=== PATIENT | female | born 1950 | race African-American/Black ===

== ENCOUNTER → 2016-11-19 | Outpatient (CLI) | payer BC ==
--- NOTE | 2016-11-19 12:57 | XR ---
EXAMINATION TYPE: XR chest 2V DATE OF EXAM: 11/19/2016 12:53 PM COMPARISON: NONE TECHNIQUE: PA and lateral views submitted. HISTORY: Influenza FINDINGS: The lungs are clear and there is no pneumothorax, pleural effusion, or focal pneumonia. Hypertrophi c and degenerative changes spine. Surgical clips in the upper abdomen. IMPRESSION: 1. No acute process.
== END ==
LOC: RADXRMAIN 12:34
PROVIDERS: ATTEND Internal Medicine
DX: J10.89 Influenza due to other identified influenza virus with other manifestations (principal)
CPT/HCPCS: 71020

== ENCOUNTER → 2017-04-21 | Outpatient (CLI) | payer BC ==
--- NOTE | 2017-04-22 09:33 | MM ---
Reason for exam: screening (asymptomatic). Last mammogram was performed 1 year and 7 months ago. History: Patient is postmenopausal. Physical Findings: A clinical breast exam by your physician is recommended on an annual basis and results should be correlated with mammographic findings. MG Screening Mammo w CAD Bilateral CC and MLO view(s) were taken. Prior study comparison: September 22, 2015, bilateral MG 3d diag mammo w/cad ANUJ. August 30, 2014, left breast MG work up mamm w CAD LT. The breast tissue is heterogeneously dense. This may lower the sensitivity of mammography. There is no discrete abnormality. No significant changes when compared with prior studies. ASSESSMENT: Negative, BI-RAD 1 RECOMMENDATION: Routine screening mammogram of both breasts in 1 year.
== END | disposition home or self-care (01) ==
LOC: RADMAMWWP 07:58
PROVIDERS: ATTEND Internal Medicine
DX: Z12.31 Encounter for screening mammogram for malignant neoplasm of breast (principal)

== ENCOUNTER 2017-09-13 22:37 | Emergency (ER) | payer BC, MEDICARE ==
[2017-09-13 22:43] VITALS: RESP 18
[2017-09-13] MEDS ORDERED: KETOROLAC 30 MG/ML 1 ML VIAL IVP STA (23:00)
--- NOTE | 2017-09-13 23:04 | ED ---
General Adult HPI - General Chief complaint: Chest Pain Stated complaint: Chest Pain Time Seen by Provider: 09/13/17 22:50 Source: patient, RN notes reviewed, old records reviewed Mode of arrival: wheelchair Limitations: no limitations - History of Present Illness Initial comments: 67-year-old female presents for evaluation of sternal chest pain. Patient's pain is been present for 3 days. She was urged by her friends and family to present for evaluation. Patient states she developed this pain after shoveling snow. Sharp in nature. She denies any cough. States she has shortness of breath only secondary to pain with deep inspiration. Pain is localized to the sternum. No radiating symptoms. No diaphoresis. Patient has past medical history diabetes, no history of coronary artery disease. No lower tremor swelling or calf tenderness. - Related Data Home Medications Medication Instructions Recorded Confirmed Clopidogrel Bisulfate [Clopidogrel] 75 mg PO DAILY 09/16/14 09/26/15 Aspirin [Adult Low Dose Aspirin EC] 81 mg PO DAILY 09/05/15 09/26/15 Cholecalciferol [Vitamin D3] 1,000 unit PO DAILY 09/05/15 09/26/15 Vitamin B Complex 1 each PO DAILY 09/05/15 09/26/15 Metoprolol Succinate [Toprol XL] 50 mg PO DAILY 09/26/15 09/26/15 metFORMIN HCL [Glucophage] 1 tab PO DAILY 09/26/15 09/26/15 Previous Rx's Medication Instructions Recorded Ibuprofen [Motrin] 400 mg PO Q6HR PRN #30 tab 09/14/17 Allergies Allergy/AdvReac Type Severity Reaction Status Date / Time nausea medication Allergy Dyspnea Uncoded 09/13/17 22:42 Review of Systems ROS Statement: Those systems with pertinent positive or pertinent negative responses have been documented in the HPI. ROS Other: All systems not noted in ROS Statement are negative. Past Medical History Additional Past Medical History / Comment(s): STATES HAD SYMPTOMS OF TIA, BUT WAS FOUND OUT TO BE A SIDE EFFECT FROM A MEDICATION. History of Any Multi-Drug Resistant Organisms: None Reported Past Surgical History: Cholecystectomy, Orthopedic Surgery, Tonsillectomy Past Psychological History: No Psychological Hx Reported Smoking Status: Never smoker Past Alcohol Use History: None Reported Past Drug Use History: None Reported General Exam Limitations: no limitations General appearance: alert, in no apparent distress Head exam: Present: atraumatic, normocephalic Eye exam: Present: normal appearance, PERRL, EOMI ENT exam: Present: normal exam Neck exam: Present: normal inspection. Absent: tenderness Respiratory exam: Present: normal lung sounds bilaterally, chest wall tenderness. Absent: respiratory distress, wheezes, rales Cardiovascular Exam: Present: regular rate, normal rhythm, normal heart sounds GI/Abdominal exam: Present: soft. Absent: distended, tenderness Extremities exam: Present: normal inspection, normal capillary refill. Absent: pedal edema Neurological exam: Present: alert, oriented X3, CN II-XII intact. Absent: motor sensory deficit Psychiatric exam: Present: normal affect, normal mood Skin exam: Present: warm, dry, intact. Absent: cyanosis, diaphoretic Course Vital Signs 09/13/17 09/13/17 09/14/17 22:40 23:01 00:18 Temperature 98.2 F Pulse Rate 78 55 L 50 L Respiratory 18 18 18 Rate Blood Pressure 134/72 135/82 117/79 O2 Sat by Pulse 98 99 100 Oximetry EKG Findings - EKG Comments: EKG Findings:: EKG shows sinus bradycardia, rate of 59, ND interval 148, QRS duration 80, QTC 421, no signs of ST segment elevation or depression Medical Decision Making - Medical Decision Making 67-year-old female presents with reproducible chest pain after shoveling snow. Pain is been present for 3 days. EKG is nonischemic. Psych CBC, CMP unremarkable. Troponin negative. With 3 days of symptoms, negative troponin, and reproducible chest pain I have no concern for cardiac chest pain. Chest x- ray shows no acute findings. Patient's pain is improved with Toradol. She will continue taking Motrin for pain at home. Diagnosis: Chest wall strain, costochondritis - Lab Data Result diagrams: 09/13/17 22:55 09/13/17 22:55 Lab Results 09/13/17 09/13/17 09/13/17 Range/Units 22:55 22:55 22:55 WBC 6.8 (3.8-10.6) k/uL RBC 4.41 (3.80-5.40) m/uL Hgb 13.5 (11.4-16.0) gm/dL Hct 42.2 (34.0-46.0) % MCV 95.7 (80.0-100.0) fL MCH 30.7 (25.0-35.0) pg MCHC 32.1 (31.0-37.0) g/dL RDW 12.5 (11.5-15.5) % Plt Count 275 (150-450) k/uL Neutrophils % 44 % Lymphocytes % 44 % Monocytes % 6 % Eosinophils % 2 % Basophils % 1 % Neutrophils # 3.0 (1.3-7.7) k/uL Lymphocytes # 2.9 (1.0-4.8) k/uL Monocytes # 0.4 (0-1.0) k/uL Eosinophils # 0.1 (0-0.7) k/uL Basophils # 0.1 (0-0.2) k/uL PT (9.0-12.0) sec INR (<1.2) APTT (22.0-30.0) sec Sodium 143 (137-145) mmol/L Potassium 4.7 (3.5-5.1) mmol/L Chloride 106 (98-107) mmol/L Carbon Dioxide 28 (22-30) mmol/L Anion Gap 9 mmol/L BUN 17 (7-17) mg/dL Creatinine 0.70 (0.52-1.04) mg/dL Est GFR (MDRD) Af Amer >60 (>60 ml/min/1.73 sqM) Est GFR (MDRD) Non-Af >60 (>60 ml/min/1.73 sqM) Glucose 127 H (74-99) mg/dL Calcium 10.0 (8.4-10.2) mg/dL Magnesium 2.1 (1.6-2.3) mg/dL Total Bilirubin 0.4 (0.2-1.3) mg/dL AST 21 (14-36) U/L ALT 31 (9-52) U/L Alkaline Phosphatase 117 (38-126) U/L Total Creatine Kinase 72 (30-135) U/L CK-MB (CK-2) 0.7 (0.0-2.4) ng/mL CK-MB (CK-2) Rel Index 1.0 Troponin I <0.012 (0.000-0.034) ng/mL Total Protein 7.5 (6.3-8.2) g/dL Albumin 4.3 (3.5-5.0) g/dL 09/13/17 Range/Units 22:55 WBC (3.8-10.6) k/uL RBC (3.80-5.40) m/uL Hgb (11.4-16.0) gm/dL Hct (34.0-46.0) % MCV (80.0-100.0) fL MCH (25.0-35.0) pg MCHC (31.0-37.0) g/dL RDW (11.5-15.5) % Plt Count (150-450) k/uL Neutrophils % % Lymphocytes % % Monocytes % % Eosinophils % % Basophils % % Neutrophils # (1.3-7.7) k/uL Lymphocytes # (1.0-4.8) k/uL Monocytes # (0-1.0) k/uL Eosinophils # (0-0.7) k/uL Basophils # (0-0.2) k/uL PT 9.8 (9.0-12.0) sec INR 1.0 (<1.2) APTT 22.7 (22.0-30.0) sec Sodium (137-145) mmol/L Potassium (3.5-5.1) mmol/L Chloride (98-107) mmol/L Carbon Dioxide (22-30) mmol/L Anion Gap mmol/L BUN (7-17) mg/dL Creatinine (0.52-1.04) mg/dL Est GFR (MDRD) Af Amer (>60 ml/min/1.73 sqM) Est GFR (MDRD) Non-Af (>60 ml/min/1.73 sqM) Glucose (74-99) mg/dL Calcium (8.4-10.2) mg/dL Magnesium (1.6-2.3) mg/dL Total Bilirubin (0.2-1.3) mg/dL AST (14-36) U/L ALT (9-52) U/L Alkaline Phosphatase (38-126) U/L Total Creatine Kinase (30-135) U/L CK-MB (CK-2) (0.0-2.4) ng/mL CK-MB (CK-2) Rel Index Troponin I (0.000-0.034) ng/mL Total Protein (6.3-8.2) g/dL Albumin (3.5-5.0) g/dL Disposition Clinical Impression: Costalchondritis, Musculoskeletal chest pain Disposition: HOME SELF-CARE Condition: Good Instructions: Costochondritis (ED) Prescriptions: Ibuprofen [Motrin] 400 mg PO Q6HR PRN #30 tab PRN Reason: Pain Referrals: Sae Thomas MD [Primary Care Provider] - 1-2 days Time of Disposition: 00:29
[2017-09-13 23:15] LABS: Basophils # (A) 0.1 k/uL (0-0.2); Basophils % (A) 1 %; Eosinophils # (A) 0.1 k/uL (0-0.7); Eosinophils % (A) 2 %; HCT 42.2 % (34.0-46.0); HGB 13.5 gm/dL (11.4-16.0); Lymphocytes # (A) 2.9 k/uL (1.0-4.8); Lymphocytes % (A) 44 %; MCH 30.7 pg (25.0-35.0); MCHC 32.1 g/dL (31.0-37.0); MCV 95.7 fL (80.0-100.0); Mean Platelet Volume 6.7; Monocytes # (A) 0.4 k/uL (0-1.0); Monocytes % (A) 6 %; Neutrophils % (A) 44 %; Platelet Count 275 k/uL (150-450); RBC 4.41 m/uL (3.80-5.40); RDW 12.5 % (11.5-15.5); WBC 6.8 k/uL (3.8-10.6)
--- NOTE | 2017-09-13 23:25 | XR ---
EXAMINATION TYPE: XR chest 2V DATE OF EXAM: 09/13/2017 COMPARISON: 11/19/2016 HISTORY: Chest pain TECHNIQUE: Frontal and lateral views of the chest are obtained. FINDINGS: Heart and mediastinum are normal. Lungs are clear. Diaphragm is normal. There are chest le ads. There is spurring in the thoracic spine. IMPRESSION: No active cardiopulmonary disease. No change.
[2017-09-13 23:28] LABS: Prothrombin Time 9.8 sec (9.0-12.0)
[2017-09-13 23:29] LABS: Partial Thromboplastin Time 22.7 sec (22.0-30.0)
[2017-09-13 23:34] LABS: ALT 31 U/L (9-52); AST 21 U/L (14-36); Albumin 4.3 g/dL (3.5-5.0); Alkaline Phosphatase 117 U/L (38-126); Anion Gap 9 mmol/L; Blood Urea Nitrogen 17 mg/dL (7-17); Carbon Dioxide 28 mmol/L (22-30); Chloride 106 mmol/L (98-107); Glucose 127 mg/dL (74-99); Magnesium 2.1 mg/dL (1.6-2.3); Potassium 4.7 mmol/L (3.5-5.1); Sodium 143 mmol/L (137-145); Total Bilirubin 0.4 mg/dL (0.2-1.3); Total Protein 7.5 g/dL (6.3-8.2)
[2017-09-13 23:37] LABS: Creatine Kinase 72 U/L (30-135)
[2017-09-13 23:50] LABS: Creatine Kinase MB 0.7 ng/mL (0.0-2.4); Troponin I <0.012 ng/mL (0.000-0.034)
[2017-09-14 00:19] VITALS: BP 117/79; PULSE 50
[2017-09-14 00:37] VITALS: TEMP 97.4
== END 2017-09-14 00:39 | disposition home or self-care (01) ==
LOC: EC 22:37
DX: M94.0 Chondrocostal junction syndrome [Tietze] (principal); E11.9 Type 2 diabetes mellitus without complications; Z79.01 Long term (current) use of anticoagulants; Z79.82 Long term (current) use of aspirin; Z79.84 Long term (current) use of oral hypoglycemic drugs; Z79.899 Other long term (current) drug therapy; Z88.8 Allergy status to other drugs, medicaments and biological substances; Y93.H1 Activity, digging, shoveling and raking
CPT/HCPCS: 36415; 93005; 80053; 82550; 82553; 83735; 84484; 85025; 85610; 85730; 71046; 99284; 96374; J1885

== ENCOUNTER → 2017-12-24 | Outpatient (CLI) | payer BC, MEDICARE ==
--- NOTE | 2017-12-24 14:49 | XR ---
Lumbar spine HISTORY: Low back pain 3 views of the lumbar spine Surgical clips present in the right upper quadrant. There is multilevel spondylosis. Loss of disc hei ght present at the intervertebral levels especially at L4-5. Sclerosis present in the posterior eleme nts. Lumbar vertebral bodies show preserved height, alignment, bone mineralization. IMPRESSION: Degenerative disc disease and facet arthropathy.
== END | disposition home or self-care (01) ==
LOC: RADXRMAIN 13:40
PROVIDERS: ATTEND Internal Medicine
DX: M51.36 Other intervertebral disc degeneration, lumbar region (principal); M46.96 Unspecified inflammatory spondylopathy, lumbar region
CPT/HCPCS: 72100

== ENCOUNTER → 2019-02-22 | Outpatient (CLI) | payer BC, MEDICARE ==
--- NOTE | 2019-02-22 15:59 | BD ---
EXAMINATION TYPE: Axial Bone Density DATE OF EXAM: 02/22/2019 COMPARISON: 09/25/2015 CLINICAL HISTORY: Age related osteoporosis. M 81.0 Height: 64.5 IN Weight: 172 LBS RISK FACTORS HISTORY OF: Active: YES Postmenopausal woman: AGE 55 MEDICATIONS: Additional Medications: VIT D, VITAMIN D, CHOLESTEROL, ASPIRIN, METFORMIN EXAM MEASUREMENTS: Bone mineral densitometry was performed using the [employer] System. Bone mineral density as measured about the Lumbar spine is: ----- L1-L4(G/cm2): 1.369 T Score Values are as follows: ----- L2: 1.3 ----- L3: 0.9 ----- L4: 3.3 ----- L1-L4: 1.6 Bone mineral density has: Increased 2.3% since study of: 09/25/2015 Bone mineral density about the R hip (g/cm2): 1.098 Bone mineral density about the L hip (g/cm2): 1.115 T Score values are as follows: -----R Neck: 0.4 -----L Neck: 0.6 -----R Total: 0.8 -----L Total: 1.3 Bone mineral density has: Increased 0.8% since study of: 09/25/2015 IMPRESSION: Normal (Values between +1 and -1 indicate normal bone mass). Consider repeating this study in 5 year s or sooner if there is some new clinical indication. NOTE: T-SCORE=SD OF THE YOUNG ADULT MEAN.
--- NOTE | 2019-02-24 07:41 | MM ---
Reason for exam: screening (asymptomatic). Last mammogram was performed 1 year and 10 months ago. History: Patient is postmenopausal. Physical Findings: A clinical breast exam by your physician is recommended on an annual basis and results should be correlated with mammographic findings. MG Screening Mammo w CAD Bilateral CC and MLO view(s) were taken. Prior study comparison: April 21, 2017, bilateral MG screening mammo w CAD. September 22, 2015, bilateral MG 3d diag mammo w/cad ANUJ. The breast tissue is heterogeneously dense. This may lower the sensitivity of mammography. No suspicious abnormality. No significant changes when compared with prior studies. ASSESSMENT: Negative, BI-RAD 1 RECOMMENDATION: Routine screening mammogram of both breasts in 1 year.
== END | disposition home or self-care (01) ==
LOC: RADMAMWWP 13:39
PROVIDERS: ATTEND Internal Medicine
DX: Z12.31 Encounter for screening mammogram for malignant neoplasm of breast (principal); M81.0 Age-related osteoporosis without current pathological fracture
CPT/HCPCS: 77067; 77080

== ENCOUNTER 2019-02-27 19:16 | Emergency (ER) | payer BC, MEDICARE ==
[2019-02-27 19:47] VITALS: BP 144/72; PULSE 57; RESP 17; TEMP 98.5
--- NOTE | 2019-02-27 20:13 | ED ---
General Adult HPI - General Chief complaint: Extremity Injury, Lower Stated complaint: Knee pain Time Seen by Provider: 02/27/19 19:55 Source: patient Mode of arrival: ambulatory Limitations: no limitations - History of Present Illness Initial comments: Patient is a 68-year-old female with complaints of left knee pain x one week. Patient denies any trauma to the knee, but does admit to doing a lot of moving of boxes, cleaning, and yard work. Patient denies any previous injury to left knee. Patient states she is having a hard time walking up and down stairs, flexing and extending her knee. Patient does report mild swelling at times. No other complaints at this time. - Related Data Home Medications Medication Instructions Recorded Confirmed Clopidogrel Bisulfate [Clopidogrel] 75 mg PO DAILY 09/16/14 09/26/15 Aspirin [Adult Low Dose Aspirin EC] 81 mg PO DAILY 09/05/15 09/26/15 Cholecalciferol [Vitamin D3] 1,000 unit PO DAILY 09/05/15 09/26/15 Vitamin B Complex 1 each PO DAILY 09/05/15 09/26/15 Metoprolol Succinate [Toprol XL] 50 mg PO DAILY 09/26/15 09/26/15 metFORMIN HCL [Glucophage] 1 tab PO DAILY 09/26/15 09/26/15 Previous Rx's Medication Instructions Recorded Ibuprofen [Motrin] 400 mg PO Q6HR PRN #30 tab 09/14/17 Allergies Allergy/AdvReac Type Severity Reaction Status Date / Time nausea medication Allergy Dyspnea Uncoded 02/27/19 19:47 Review of Systems ROS Statement: Those systems with pertinent positive or pertinent negative responses have been documented in the HPI. ROS Other: All systems not noted in ROS Statement are negative. Past Medical History Additional Past Medical History / Comment(s): STATES HAD SYMPTOMS OF TIA, BUT WAS FOUND OUT TO BE A SIDE EFFECT FROM A MEDICATION. History of Any Multi-Drug Resistant Organisms: None Reported Past Surgical History: Cholecystectomy, Orthopedic Surgery, Tonsillectomy Past Psychological History: No Psychological Hx Reported Smoking Status: Never smoker Past Alcohol Use History: None Reported Past Drug Use History: None Reported General Exam - General Exam Comments Initial Comments: GENERAL: Well-appearing, well-nourished and in no acute distress. HEAD: Atraumatic, normocephalic. EYES: Pupils equal round and reactive to light, extraocular movements intact, sclera anicteric, conjunctiva are normal. ENT: TMs normal, nares patent, oropharynx clear without exudates. Moist mucous membranes. NECK: Normal range of motion, supple without lymphadenopathy or JVD. LUNGS: Breath sounds clear to auscultation bilaterally and equal. No wheezes rales or rhonchi. HEART: Regular rate and rhythm without murmurs, rubs or gallops. ABDOMEN: Soft, nontender, normoactive bowel sounds. No guarding, no rebound. No masses appreciated. : Deferred EXTREMITIES: Pain with palpitation on the lateral joint line of the left knee. Patient has mild edema present. No erythema or warmth to the knee. Patient has decreased extension and flexion, with range of motion from 15 to about 90. Positive Eufemia's test. NEUROLOGICAL: Cranial nerves II through XII grossly intact. Normal speech, normal gait. PSYCH: Normal mood, normal affect. SKIN: Warm, Dry, normal turgor, no rashes or lesions noted. Limitations: no limitations Course Vital Signs 02/27/19 19:44 Temperature 98.5 F Pulse Rate 57 L Respiratory 17 Rate Blood Pressure 144/72 O2 Sat by Pulse 98 Oximetry Medical Decision Making - Medical Decision Making Patient is a 68-year-old female with complaints of left knee pain times one week. Patient denies any injury or trauma to the right knee. She has been doin g a lot of activity, gardening, housework. No previous injury to the left knee. On exam patient is tender in the lateral joint line of the left knee. Patient has mild swelling. Patient has positive Eufemia's test. X-ray left knee reveals no acute fractures. Patient is afebrile. Patient will be given orthopedic referral for possible meniscus injury. Patient is okay with this plan. Case discussed with Dr. Shahid. Return parameters were discussed. Disposition Clinical Impression: Left knee pain Disposition: HOME SELF-CARE Condition: Stable Instructions (If sedation given, give patient instructions): Knee Pain (ED) Additional Instructions: Please return to the Emergency Department if symptoms worsen or any other concerns. Follow up with orthopedics as discussed. Is patient prescribed a controlled substance at d/c from ED?: No Referrals: Sae Thomas MD [Primary Care Provider] - 1-2 days Mo Dennis MD [STAFF PHYSICIAN] - 1-2 days
--- NOTE | 2019-02-27 20:33 | XR ---
EXAMINATION TYPE: XR knee complete LT DATE OF EXAM: 02/27/2019 CLINICAL HISTORY: Left knee pain TECHNIQUE: Three views of the left knee are obtained. COMPARISON: None. FINDINGS: There is no acute fracture/dislocation evident in left knee. Small marginal osteophytes ar e seen in the inferior patellar pole and medial tibial plateau. Very minimal joint space narrowing is seen of the medial compartment. The overlying soft tissue appears unremarkable. IMPRESSION: There is no acute fracture or dislocation in the left knee. Mild bicompartmental arthrop athy.
== END 2019-02-27 20:57 | disposition home or self-care (01) ==
LOC: EC 19:16
DX: M25.562 Pain in left knee (principal); M25.462 Effusion, left knee; Z79.02 Long term (current) use of antithrombotics/antiplatelets; Z79.82 Long term (current) use of aspirin; Z79.84 Long term (current) use of oral hypoglycemic drugs; Z79.899 Other long term (current) drug therapy; Z88.8 Allergy status to other drugs, medicaments and biological substances
CPT/HCPCS: 99283

== ENCOUNTER 2022-04-11 09:10 | Emergency (ER) | payer BC, MEDICARE ==
--- NOTE | 2022-04-11 09:54 | XR ---
EXAMINATION TYPE: XR foot complete RT DATE OF EXAM: 04/11/2022 COMPARISON: NONE HISTORY: Pain TECHNIQUE: Three views are submitted. FINDINGS: The osseous structures are intact. There is no acute fracture or dislocation. Severe hypertrophic arthropathy first MTP. Mild osteopenia. Small plantar calcaneal spur. IMPRESSION: 1. No acute fracture or dislocation. If symptoms persist, follow-up exam in 7 to 10 days could be ob tained. 2 severe hypertrophic arthropathy first MTP.
--- NOTE | 2022-04-11 10:05 | ED ---
Lower Extremity Injury HPI - General Chief Complaint: Extremity Injury, Lower Stated Complaint: R foot toe pain Time Seen by Provider: 04/11/22 09:19 Source: patient, RN notes reviewed Mode of arrival: ambulatory Limitations: no limitations - History of Present Illness Initial Comments: 71-year-old female presents emergency Department with chief complaint of toe pain on the right foot. Patient states she injured it last day. Patient states she had pain, swelling and was concerned. No paresthesias of the usual no other complaints. - Related Data Home Medications Medication Instructions Recorded Confirmed Clopidogrel Bisulfate [Clopidogrel] 75 mg PO DAILY 09/16/14 09/26/15 Aspirin [Adult Low Dose Aspirin EC] 81 mg PO DAILY 09/05/15 09/26/15 Cholecalciferol [Vitamin D3] 1,000 unit PO DAILY 09/05/15 09/26/15 Vitamin B Complex 1 each PO DAILY 09/05/15 09/26/15 Metoprolol Succinate [Toprol XL] 50 mg PO DAILY 09/26/15 09/26/15 metFORMIN HCL [Glucophage] 1 tab PO DAILY 09/26/15 09/26/15 Previous Rx's Medication Instructions Recorded Ibuprofen [Motrin] 400 mg PO Q6HR PRN #30 tab 09/14/17 Allergies Allergy/AdvReac Type Severity Reaction Status Date / Time nausea medication Allergy Dyspnea Uncoded 04/11/22 09:17 Review of Systems ROS Statement: Those systems with pertinent positive or pertinent negative responses have been documented in the HPI. ROS Other: All systems not noted in ROS Statement are negative. Past Medical History Past Medical History: Diabetes Mellitus Additional Past Medical History / Comment(s): STATES HAD SYMPTOMS OF TIA, BUT WAS FOUND OUT TO BE A SIDE EFFECT FROM A MEDICATION. History of Any Multi-Drug Resistant Organisms: None Reported Past Surgical History: Cholecystectomy, Orthopedic Surgery, Tonsillectomy Past Psychological History: No Psychological Hx Reported Past Alcohol Use History: None Reported Past Drug Use History: None Reported General Exam Limitations: no limitations General appearance: alert, in no apparent distress Head exam: Present: atraumatic, normocephalic, normal inspection Neck exam: Present: normal inspection. Absent: tenderness, meningismus, lymphadenopathy Respiratory exam: Present: normal lung sounds bilaterally. Absent: respiratory distress, wheezes, rales, rhonchi, stridor Extremities exam: Present: other (Right foot first digit there is mild swelling, tenderness with palpation there is no pain proximal to the first digit digits 2 through 5 unremarkable. Neurovascular intact foot) Course Vital Signs 04/11/22 09:11 Temperature 98.9 F Pulse Rate 57 L Respiratory 18 Rate Blood Pressure 112/72 O2 Sat by Pulse 97 Oximetry Medical Decision Making - Medical Decision Making X-rays negative for acute fracture. Patient has right foot first toe contusion return parameters were discussed Disposition Clinical Impression: Pain in toe of right foot, Contusion of toe of right foot Disposition: HOME SELF-CARE Condition: Stable Instructions (If sedation given, give patient instructions): Foot Contusion (ED) Additional Instructions: Please return to the Emergency Department if symptoms worsen or any other concerns. Is patient prescribed a controlled substance at d/c from ED?: No Referrals: Sae Thomas MD [Primary Care Provider] - 1-2 days Time of Disposition: 10:05
[2022-04-11 11:02] VITALS: BP 118/70; PULSE 56; RESP 16; TEMP 98
== END 2022-04-11 11:00 | disposition home or self-care (01) ==
LOC: EC 09:10
DX: S90.111A Contusion of right great toe without damage to nail, initial encounter (principal); E11.9 Type 2 diabetes mellitus without complications; Z79.84 Long term (current) use of oral hypoglycemic drugs; Z88.8 Allergy status to other drugs, medicaments and biological substances; X58.XXXA Exposure to other specified factors, initial encounter
CPT/HCPCS: 99283

== ENCOUNTER 2023-04-11 17:34 | Emergency (ER) | payer MEDICARE ==
[2023-04-11 17:40] VITALS: RESP 18; TEMP 98.2
[2023-04-11] MEDS ORDERED: KETOROLAC 15 MG/ML 1 ML VIAL IM STA (17:49)
--- NOTE | 2023-04-11 18:46 | ED ---
Lower Extremity Injury HPI - General Chief Complaint: Extremity Injury, Lower Stated Complaint: fall Time Seen by Provider: 04/11/23 17:45 Source: patient, EMS, RN notes reviewed, old records reviewed Mode of arrival: EMS Limitations: no limitations - History of Present Illness Initial Comments: This is a 72-year-old female to ER today for evaluation of left ankle pain severe. Patient fell onto her left ankle will try to take a step down stairs. Severe pain left leg and unable to bear weight currently. No prior history of broken bones. Patient takes no medications is no medical history no recent syncopal event. No headache chest pain shortness of breath or abdominal pain. MD Complaint: ankle injury, fall Injury: Ankle: Left Type of Injury: blunt, inversion, hyperextension Place: home Severity: severe Severity scale (1-10): 10 Worsens With: weight bearing, movement, palpation Context: fall, direct blow - Related Data Home Medications Medication Instructions Recorded Confirmed Clopidogrel Bisulfate [Clopidogrel] 75 mg PO QAM 09/16/14 04/17/23 Vitamin B Complex 1 cap PO DAILY 09/05/15 04/17/23 metFORMIN HCL [Glucophage] 500 mg PO BID 09/26/15 04/17/23 Atorvastatin [Lipitor] 20 mg PO DAILY 04/11/22 04/17/23 Cholecalciferol [Vitamin D3 (25 25 mcg PO DAILY 04/11/22 04/17/23 Mcg = 1000 Iu)] lisinopriL [Zestril] 2.5 mg PO QAM 04/11/22 04/17/23 Acetaminophen-Codeine 300-30mg 1 - 2 tab PO Q6H PRN 04/17/23 04/17/23 [Tylenol w/codeine #3] Allergies Allergy/AdvReac Type Severity Reaction Status Date / Time No Known Allergies Allergy Verified 04/17/23 08:57 Review of Systems ROS Statement: Those systems with pertinent positive or pertinent negative responses have been documented in the HPI. ROS Other: All systems not noted in ROS Statement are negative. Past Medical History Past Medical History: Diabetes Mellitus Additional Past Medical History / Comment(s): STATES HAD SYMPTOMS OF TIA, BUT WAS FOUND OUT TO BE A SIDE EFFECT FROM A MEDICATION. History of Any Multi-Drug Resistant Organisms: None Reported Past Surgical History: Cholecystectomy, Orthopedic Surgery, Tonsillectomy Past Psychological History: No Psychological Hx Reported Smoking Status: Never smoker Past Alcohol Use History: None Reported Past Drug Use History: None Reported General Exam Limitations: no limitations General appearance: alert, in no apparent distress Head exam: Present: atraumatic, normocephalic, normal inspection Eye exam: Present: normal appearance, PERRL, EOMI. Absent: scleral icterus, conjunctival injection, periorbital swelling ENT exam: Present: normal exam, mucous membranes moist Neck exam: Present: normal inspection. Absent: tenderness, meningismus, lymphadenopathy Respiratory exam: Present: normal lung sounds bilaterally. Absent: respiratory distress, wheezes, rales, rhonchi, stridor Cardiovascular Exam: Present: regular rate, normal rhythm, normal heart sounds. Absent: systolic murmur, diastolic murmur, rubs, gallop, clicks GI/Abdominal exam: Present: soft, normal bowel sounds. Absent: distended, tenderness, guarding, rebound, rigid Extremities exam: Present: normal inspection, full ROM, normal capillary refill. Absent: tenderness, pedal edema, joint swelling, calf tenderness Back exam: Present: normal inspection Neurological exam: Present: alert, oriented X3, CN II-XII intact Psychiatric exam: Present: normal affect, normal mood Skin exam: Present: warm, dry, intact, normal color. Absent: rash Course Vital Signs 04/11/23 04/11/23 17:36 19:53 Temperature 98.2 F 98.2 F Pulse Rate 65 57 L Respiratory 18 18 Rate Blood Pressure 142/86 125/75 O2 Sat by Pulse 100 98 Oximetry - Reevaluation(s) Reevaluation #1: 04/12/23 00:16 Medical record is reviewed Reevaluation #2: 04/12/23 00:16 Patient's pain is well improving controlled Reevaluation #3: 04/12/23 00:16 Patient informed results questions answered Reevaluation #4: 04/12/23 00:16 Was pt. sent in by a medical professional or institution ([facility]ESS[facility] Negro, ROLL COVERER, urgent care, hospital, or prison...) When possible be specific @ -no Did you speak to anyone other than the patient for history (EMS, parent, family, police, friend...)? What history was obtained from this source @ -no Did you review nursing and triage notes (agree or disagree)? Why? @ -agree Are old charts reviewed (outside hosp., previous admission, EMS record, old EKG, old radiological studies, urgent care reports/EKG's, prison records)? Report findings @ -yes Differential Diagnosis (chest pain, altered mental status, abdominal pain women, abdominal pain men, vaginal bleeding, weakness, fever, dyspnea, syncope, headache, dizziness, GI bleed, back pain, seizure, CVA, palpatations, mental health, musculoskeletal)? @ -prior EKG interpreted by me (3pts min.). @ -no X-rays interpreted by me (1pt min.). @ -yes CT interpreted by me (1pt min.). @ -no U/S interpreted by me (1pt. min.). @ -no What testing was considered but not performed or refused? (CT, X-rays, U/S, labs)? Why? @ -none What meds were considered but not given or refused? Why? @ -none Did you discuss the management of the patient with other professionals (professionals i.e. , PA, ROLL COVERER, lab, RT, psych nurse, social science manager, neonatal intensive care unit nurse, teacher, probation and parole officer, dependency case manager)? Give summary @ -no Was smoking cessation discussed for >3mins.? @ -no Was critical care preformed (if so, how long)? @ -no Were there social determinants of health that impacted care today? How? (Homelessness, low income, unemployed, alcoholism, drug addiction, transportation, low edu. Level, literacy, decrease access to med. care, half-way, rehab)? @ -none Was there de-escalation of care discussed even if they declined (Discuss DNR or withdrawal of care, Hospice)? DNR status @ -no What co-morbidities impacted this encounter? (DM, HTN, Smoking, COPD, CAD, Cancer, CVA, ARF, Chemo, Hep., AIDS, mental health diagnosis, sleep apnea, morbid obesity)? @ -none Was patient admitted / discharged? Hospital course, mention meds given and route, prescriptions, significant lab abnormalities, going to OR and other pertinent info. @ - 72 female to the emergency department today with ankle pain severe ankle pain secondary to bimalleolar fracture this injury occurred after a fall. Patient's ankle splinted here in the ER patient can be discharged home to follow-up with orthopedics, not requiring current pain management Discharged Undiagnosed new problem with uncertain prognosis? @ -no Drug Therapy requiring intensive monitoring for toxicity (Heparin, Nitro, Insulin, Cardizem)? @ -no Were any procedures done? @ -He has left ankle was splinted Diagnosis/symptom? @ -Left ankle fracture splinted Acute, or Chronic, or Acute on Chronic? @ -Acute Uncomplicated (without systemic symptoms) or Complicated (systemic symptoms)? @ -Complicated Side effects of treatment? @ -no Exacerbation, Progression, or Severe Exacerbation? @ -exacerbation Poses a threat to life or bodily function? How? (Chest pain, [place], [place], pneumonia, PE, COPD, DKA, ARF, appy, cholecystitis, CVA, Diverticulitis, Homicidal, Suicidal, threat to staff... and all critical care pts) @ -no Procedures - Orthopedic Splinting/Casting Injury #1 Side: left Upper Extremity Immobilizer: posterior splint, sugar tong splint Lower Extremity Injury Location: ankle Other Orthopedic Equipment: crutches Medical Decision Making - Medical Decision Making 72 female to the emergency department today with ankle pain severe ankle pain secondary to bimalleolar fracture this injury occurred after a fall. Patient's ankle splinted here in the ER patient can be discharged home to follow-up with orthopedics, not requiring current pain management - Radiology Data Radiology results: report reviewed (X-ray left ankle positive for bimalleolar fracture), image reviewed Disposition Clinical Impression: Closed left ankle fracture, Bimalleolar fracture of left ankle, Fall Disposition: HOME SELF-CARE Condition: Good Instructions (If sedation given, give patient instructions): Ankle Fracture (ED) Is patient prescribed a controlled substance at d/c from ED?: No Referrals: Sae Thomas MD [Primary Care Provider] - 1-2 days Time of Disposition: 19:40
--- NOTE | 2023-04-11 18:50 | XR ---
EXAMINATION TYPE: XR ankle complete 3 views LT DATE OF EXAM: 04/11/2023 Comparison: None Clinical History: 72-year-old female with fall and pain Findings: Bimalleolar ankle fracture is offset slightly by 3 mm. Talar dome appears intact. Prevertebral soft t issue swelling. Smooth delineation to the Achilles tendon. Tiny plantar heel spur. Impression: Unstable bimalleolar ankle fractures displaced minimally by 3 mm.
[2023-04-11 19:57] VITALS: BP 125/75; PULSE 57
== END 2023-04-11 20:05 | disposition home or self-care (01) ==
LOC: EC 17:34
DX: S82.842A Displaced bimalleolar fracture of left lower leg, initial encounter for closed fracture (principal); E11.9 Type 2 diabetes mellitus without complications; Z79.84 Long term (current) use of oral hypoglycemic drugs; Z90.49 Acquired absence of other specified parts of digestive tract; X50.1XXA Overexertion from prolonged static or awkward postures, initial encounter; Y92.009 Unspecified place in unspecified non-institutional (private) residence as the place of occurrence of the external cause
CPT/HCPCS: 73610; 29515; 99284; 96372; J1885

== ENCOUNTER 2023-04-23 12:10 | Day surgery (SDC) | payer MEDICARE ==
[2023-04-17 09:20] VITALS: BMI 29.2
--- NOTE | 2023-04-23 07:41 | P.HPOR ---
History of Present Illness H&P Date: 04/23/23 Chief Complaint: Left ankle pain The patient is a 72-year-old female who presents with left ankle pain after an injury on 04/11/2023. She missed a step in her garage twisting her ankle. Initially she was seen at [facility] emergency room and was placed in a splint. She's been nonweightbearing since. She denies previous injury. Review of Systems As per HPI Past Medical History Past Medical History: Diabetes Mellitus, Hyperlipidemia, Hypertension Additional Past Medical History / Comment(s): STATES HAD SYMPTOMS OF TIA, BUT WAS FOUND OUT TO BE A SIDE EFFECT FROM A MEDICATION. History of Any Multi-Drug Resistant Organisms: None Reported Past Surgical History: Cholecystectomy, Orthopedic Surgery, Tonsillectomy Additional Past Surgical History / Comment(s): Right ankle surgery. Past Anesthesia/Blood Transfusion Reactions: No Reported Reaction, Motion Sickness Past Psychological History: No Psychological Hx Reported Smoking Status: Never smoker Past Alcohol Use History: None Reported Past Drug Use History: None Reported - Past Family History Father Family Medical History: Cancer Brother(s) Family Medical History: Cancer Sister(s) Family Medical History: Cancer Medications and Allergies Home Medications Medication Instructions Recorded Confirmed Type Clopidogrel Bisulfate [Clopidogrel] 75 mg PO QAM 09/16/14 04/17/23 History Vitamin B Complex 1 cap PO DAILY 09/05/15 04/17/23 History metFORMIN HCL [Glucophage] 500 mg PO BID 09/26/15 04/17/23 History Atorvastatin [Lipitor] 20 mg PO DAILY 04/11/22 04/17/23 History Cholecalciferol [Vitamin D3 (25 25 mcg PO DAILY 04/11/22 04/17/23 History Mcg = 1000 Iu)] lisinopriL [Zestril] 2.5 mg PO QAM 04/11/22 04/17/23 History Acetaminophen-Codeine 300-30mg 1 - 2 tab PO Q6H PRN 04/17/23 04/17/23 History [Tylenol w/codeine #3] Allergies Allergy/AdvReac Type Severity Reaction Status Date / Time No Known Allergies Allergy Verified 04/17/23 08:57 Physical Examination - Ankle & Foot left Ankle appearance: swelling Foot swelling: other (Moderate medial and lateral ankle swelling) Tenderness with palpation: medial ankle, lateral ankle Ankle pain worse with weight bearing: Yes Tests: achilles rupture tests: negative Results The patient is a well-developed well-nourished female proximal 5 foot 5, 164 pounds of mesomorphic habits. HEENT exam is nonfocal, neck is supple. She has painless passive motion of her left hip and knee. She is nontender about the left proximal fibula. On examination of her left ankle she has moderate medial and lateral swelling. Skin is intact. No blistering is noted. She's tender over the distal fibula and the medial malleolus. No mid or forefoot tenderness noted. Ankle motion is limited secondary to pain. Her distal neurovascular appears intact in the left lower extremity. - Diagnostic results Ankle/Foot x-ray: image reviewed (3 views of the left ankle obtained the office shows a bimalleolar fracture with mild displacement.) Assessment and Plan Assessment: Displaced left bimalleolar ankle fracture [id number] diabetes Plan: I talked the patient length regarding her condition along with treatment options. At this point I recommend proceeding with surgical intervention. We will plan to proceed with open reduction and internal fixation of the medial and lateral malleoli fractures. We will likely keep the patient for 23 hour hold postoperative. Risks and benefits were discussed at length in layman's terms.
[~2023-04-23 12:10] MED LIST: DEXAMETHASONE SOD PHOSPHATE 4 MG/ML 1 ML VIAL IV ONE; HYDROmorphone 0.5 MG/0.5 ML SYRINGE IVP PRN; ONDANSETRON 4 MG/2 ML VIAL IVP ONE
[2023-04-23] MEDS: LACTATED RINGERS 1,000 ML IV SCH (12:52)
[2023-04-23 13:25] LABS: Glucose,Whole Blood 123 mg/dL (70-110)
[2023-04-23] MEDS ORDERED: MIDAZOLAM 2 MG/2 ML VIAL IVP ONE (13:32)
[2023-04-23] MEDS ORDERED: fentaNYL (PF) 50 MCG/ML 2 ML AMP IVP ONE (13:32)
[2023-04-23] MEDS ORDERED: HYDROmorphone 0.5 MG/0.5 ML SYRINGE IVP PRN ×2 (15:56)
[2023-04-23] MEDS ORDERED: HYDROcodone/APAP 5-325MG 1 EACH TAB PO PRN (15:56)
[2023-04-23] MEDS ORDERED: SENNOSIDES-DOCUSATE SODIUM 1 EACH TAB PO PRN (15:56)
--- NOTE | 2023-04-23 15:58 | P.ANPRN ---
Procedure Note - Anesthesia - Nerve Block Performed Left Popliteal Single Time Out Performed: Yes (1331) Date of Procedure: 04/23/23 Procedure Start Time: 13:32 Procedure Stop Time: 13:37 Location of Patient: PreOp Indication: Acute Post-Operative Pain, Requested by Surgeon Specifically requested for management of pain by DrDanyelle: Rito Rubin Sedation Type: Sedate with meaningful contact maintained Preparation: Sterile Prep Position: Right Lateral Catheter: None Needle Types: Pajunk Needle Gauge: 21 Ultrasound used to visualize needle placement: Yes Ultrasound used to observe medication spread: Yes Injectate: 0.5% Ropivacaine (see comment for volume) (15cc + 5cc nacl pf) Blood Aspirated: No Pain Paresthesia on Injection Noted: No Resistance on Injection: Normal Image Stored and Saved: Yes Events: Uneventful and Well Tolerated
--- NOTE | 2023-04-23 15:59 | P.OP ---
Date of Procedure: 04/23/23 Preoperative Diagnosis: Displaced left bimalleolar ankle fracture Postoperative Diagnosis: Same Procedure(s) Performed: Open reduction and internal fixation left bimalleolar ankle fracture Implants: Arthrex 7 hole one third tubular plate, 4.0 x 44 mm partially threaded cancellus screws 2 Anesthesia: phill JURADO Surgeon: Rito Rubin Senior Insight Manager #1: Lucius Thao Estimated Blood Loss (ml): 10 Pathology: none sent Condition: stable Disposition: PACU Indications for Procedure: The patient is a 72-year-old female presents with a displaced left closed bimalleolar ankle fracture after a recent fall. A discussion of the risks and benefits of operative intervention versus attempted conservative measures was made with patient. She opted to proceed with surgery. Operative risks to include infection, neurovascular injury, development of blood clots, possible development nonunion/malunion and need for subsequent procedures was discussed. Informed consent was obtained. Operative Findings: As below Description of Procedure: The patient was brought to the operating room, and after induction of general anesthesia the left lower extremity was prepped and draped in normal fashion. The tourniquet was inflated to 250 mmHg. An 8 cm incision was then made along the posterior lateral subcutaneous border of the distal fibula. Skin was incised sharply. Subcutaneous tissues were divided bluntly. Electrocautery was used for hemostasis. The fracture site was identified and cleaned of clot and debris. This was removed then reduced with a reduction clamp. This is verified with the aid of fluoroscopy. An anterior to posterior lag screw utilizing a 3.5 mm cortical screws the appropriate length was placed. Good compression at the fracture site was noted. A 7-hole one third tubular plate was then placed along the lateral distal fibula as a neutralization plate. This was contoured. This was verified with fluoroscopy. Adequate reduction of fracture along with confucianism of fibular length was noted. Attention was then paid towards the medial malleolar fracture. A 4 cm incision was made along the medial aspect of the left ankle. Skin was incised sharply. Subcu tissues were divided bluntly. The fracture site was identified and cleaned of clot and debris. The medial talar dome was inspected. The fracture was then reduced and pinned in place with 2 guidewires in a parallel fashion. This is done with the aid of fluoroscopy. 2 cannulated screws were inserted over the guidewires with good compression at the fracture site. These were 4.0 mm x 45 mm partially threaded cancellus screws. Final fluoroscopic views including AP lateral and mortise view showed adequate reduction of the medial and lateral malleolar fractures along with adequate confucianism of the ankle mortise. The wounds were irrigated normal saline. The subcu tissues were reapproximated interrupted 3-0 Vicryl sutures. Skin was reapproximated with 3-0 subcuticular Prolene suture. Steri- Strips were applied. The tourniquet was deflated with approximately 75 minutes total tourniquet time. A sterile dressing in addition to a bulky splint was placed. The patient was awoken from general anesthesia and transferred to recovery room in good condition. Blood loss was estimated 10 mL. No complications were incurred. Sponge and needle counts were correct in the case. Lucius LOPEZ assisted during the major components the case including positioning, exposure, reduction, implantation, and closure.
--- NOTE | 2023-04-23 16:00 | P.ANPRN ---
Procedure Note - Anesthesia - Nerve Block Performed Left Adductor Canal Single Time Out Performed: Yes (1331) Date of Procedure: 04/23/23 Procedure Start Time: 13:38 Procedure Stop Time: 13:43 Location of Patient: PreOp Indication: Acute Post-Operative Pain, Requested by Surgeon Specifically requested for management of pain by : Rito Rubin Sedation Type: Sedate with meaningful contact maintained Preparation: Sterile Prep Position: Supine Catheter: None Needle Types: Pajunk Needle Gauge: 21 Ultrasound used to visualize needle placement: Yes Ultrasound used to observe medication spread: Yes Injectate: 0.5% Ropivacaine (see comment for volume) (15cc + 5cc nacl pf) Blood Aspirated: No Pain Paresthesia on Injection Noted: No Resistance on Injection: Normal Image Stored and Saved: Yes Events: Uneventful and Well Tolerated
[2023-04-23 18:22] LABS: Basophils % (A) 0 %; Eosinophils # (A) 0.1 k/uL (0-0.7); Eosinophils % (A) 1 %; HCT 40.6 % (34.0-46.0); HGB 13.5 gm/dL (11.4-16.0); Lymphocytes % (A) 13 %; MCHC 33.2 g/dL (31.0-37.0); MCV 96.1 fL (80.0-100.0); Mean Platelet Volume 7.6; Monocytes # (A) 0.1 k/uL (0-1.0); Monocytes % (A) 2 %; Neutrophils # (A) 6.3 k/uL (1.3-7.7); Neutrophils % (A) 84 %; Platelet Count 260 k/uL (150-450); RBC 4.22 m/uL (3.80-5.40); RDW 12.1 % (11.5-15.5); WBC 7.5 k/uL (3.8-10.6)
[2023-04-23] MEDS: HYDROcodone/APAP 5-325MG 1 EACH TAB PO PRN (20:39)
[2023-04-23 20:46] LABS: Glucose,Whole Blood 212 mg/dL (70-110)
--- NOTE | 2023-04-23 22:14 | XR ---
Fluoroscopy INDICATION: Pain FINDINGS: Fluoroscopy time: 20 seconds. Total dose area product (DAP) in uGy*m?, mGy*cm? (or similar): 0.2899 Images obtained: 5. IMPRESSIONS: 1. Documentation of fluoroscopy.
[2023-04-24] MEDS: HYDROcodone/APAP 5-325MG 1 EACH TAB PO PRN ×2 (02:31→07:48)
[2023-04-24] MEDS: LACTATED RINGERS 1,000 ML IV SCH (05:10)
[2023-04-24 05:48] LABS: Glucose,Whole Blood 137 mg/dL (70-110)
[2023-04-24 07:35] VITALS: BP 106/66; PULSE 77; RESP 18; TEMP 98.8
[2023-04-24] MEDS ORDERED: CLOPIDOGREL 75 MG TAB PO SCH ×2 (09:00→10:30)
--- NOTE | 2023-04-24 09:26 | P.DS ---
Providers Date of admission: 04/23/2023 Expected date of discharge: 04/24/23 Attending physician: Rito Rubin Consults: 04/23/23 15:59 Consult Physician Routine Consulting Provider: Sae Thomas Consult Reason/Comments: Medical Management s/p ORIF left ankle Do you want consulting provider notified?: Yes Primary care physician: Sae Thomas Hospital Course: Date of admission: 04/23/2023 Date of discharge: 04/24/2023 Admission diagnosis: Displaced left bimalleolar ankle fracture Discharge diagnosis: Same Attending physician: Dr. Rubin Surgical procedures: Open reduction and internal fixation left bimalleolar ankle fracture Brief history: Patient is a 72-year-old female with a history of displaced left bimalleolar ankle fracture. At this point patient has failed conservative treatment measures and has opted to proceed with a elective open reduction and internal fixation left bimalleolar ankle fracture. Hospital course: Details of patient's surgery can be found in operative report. Patient tolerated the procedure well and was subsequently transported to orthopedic floor. Patient's orthopeidc and medical care was provided daily. Patient had daily laboratory tests performed for evaluation of overall blood counts. Patient had daily physical therapy to include strengthening range of motion as well as education with walker ambulation. Patient was treated with Plavix for their postoperative DVT prophylaxis during their inpatient stay. Patient was noted to have a relatively uneventful postoperative course. Patient reported satisfactory pain control with oral pain medications by postoperative day 1. Patient showed satisfactory progress with physical therapy. Patient moved steadily through the program and had no difficulty meeting the goals by postoperative day 1. Given patient's otherwise satisfactory course and having met physical therapy goals, plan is to discharge patient home on postoperative day 1. Discharge condition/disposition: Patient will be discharged home in stable condition. Discharge medications: Instructions are given on resumption of patient's normal daily medications per primary care recommendation, in addition patient will be prescribed [place] 5 mg/325 mg 12 every 6 hours; senna; resume Plavix daily at home for DVT prophylaxis. Orthopedic Discharge Instructions: 1. Wound care and infection precautions, keep incision dry and covered while showering, no lotions, creams, moisturizers. No soaking, pools, hot tubs. Do not scrub over incision. 2. Nonweightbearing left lower extremity until follow-up in office. 3. Ice and elevate when necessary. Do not exceed 20 minutes per hour with ice pack. 4. Utilize crutches or knee scooter 5. Pain meds and anticoagulants per prescription. 6. Pain medication has potential to cause constipation. Increase oral fluid and fiber intake. Contact primary care provider if you have not had a bowel movement within 48 hours after discharge. 7. No anti-inflammatory medication until discussed at first post operative visit, this including Motrin, Aleve, Mobic, Diclofenac. 8. Follow up in office at 2 weeks postop with Jefferson Melgar PA-C / Lucius Thao PA-C 9. Follow up with your primary care doctor 7-10 days after discharge. 10. Contact [facility] with any questions, . Assessment: Displaced left bimalleolar ankle fracture Procedures: Open reduction and internal fixation left bimalleolar ankle fracture Patient Condition at Discharge: Good Plan - Discharge Summary Discharge Rx Participant: Yes New Discharge Prescriptions: New Sennosides/Docusate Sodium [Senna Plus 8.6-50 mg Softgel] 1 each PO DAILY #20 capsule HYDROcodone/APAP 5-325MG [[place] 5-325] 1 - 2 tab PO Q6HR PRN #36 tab PRN Reason: Pain Continue Clopidogrel Bisulfate [Clopidogrel] 75 mg PO QAM No Action Vitamin B Complex 1 cap PO DAILY metFORMIN HCL [Glucophage] 500 mg PO BID lisinopriL [Zestril] 2.5 mg PO QAM Atorvastatin [Lipitor] 20 mg PO DAILY Acetaminophen-Codeine 300-30mg [Tylenol w/codeine #3] 1 - 2 tab PO Q6H PRN PRN Reason: Pain Cholecalciferol [Vitamin D3 (25 Mcg = 1000 Iu)] 25 mcg PO DAILY Discharge Medication List Clopidogrel Bisulfate [Clopidogrel] 75 mg PO QAM 09/16/14 [History] Vitamin B Complex 1 cap PO DAILY 09/05/15 [History] metFORMIN HCL [Glucophage] 500 mg PO BID 09/26/15 [History] Atorvastatin [Lipitor] 20 mg PO DAILY 04/11/22 [History] Cholecalciferol [Vitamin D3 (25 Mcg = 1000 Iu)] 25 mcg PO DAILY 04/11/22 [History] lisinopriL [Zestril] 2.5 mg PO QAM 04/11/22 [History] Acetaminophen-Codeine 300-30mg [Tylenol w/codeine #3] 1 - 2 tab PO Q6H PRN 04/17/23 [History] HYDROcodone/APAP 5-325MG [[place] 5-325] 1 - 2 tab PO Q6HR PRN #36 tab 04/24/23 [Rx] Sennosides/Docusate Sodium [Senna Plus 8.6-50 mg Softgel] 1 each PO DAILY #20 capsule 04/24/23 [Rx] Follow up Appointment(s)/Referral(s): Lucius Thao, LILY [PHYSICIAN [employer] AND [employer]IGHER] - 2 Weeks Patient Instructions/Handouts: *Surgery [facility] - (Anesthesia) Discharge Instructions Outpatient Surgery, ORIF of an Ankle Fracture (DC) Activity/Diet/Wound Care/Special Instructions: Orthopedic Discharge Instructions: 1. Wound care and infection precautions, keep incision dry and covered while showering, no lotions, creams, moisturizers. No soaking, pools, hot tubs. Do not scrub over incision. 2. Nonweightbearing left lower extremity until follow-up in office. 3. Ice and elevate when necessary. Do not exceed 20 minutes per hour with ice pack. 4. Utilize crutches or knee scooter 5. Pain meds and anticoagulants per prescription. 6. Pain medication has potential to cause constipation. Increase oral fluid and fiber intake. Contact primary care provider if you have not had a bowel movement within 48 hours after discharge. 7. No anti-inflammatory medication until discussed at first post operative visit, this including Motrin, Aleve, Mobic, Diclofenac. 8. Follow up in office at 2 weeks postop with Jefferson Melgar PA-C / Lucius Thao PA-C 9. Follow up with your primary care doctor 7-10 days after discharge. 10. Contact [facility] with any questions, . Discharge Disposition: HOME SELF-CARE
--- NOTE | 2023-04-24 10:17 | P.PN ---
Subjective Progress Note Date: 04/24/23 Principal diagnosis: Displaced left bimalleolar ankle fracture Patient was seen at bedside this morning lying semirecumbent position with date bulky dressing and splint present to left lower extremity. Patient says she has been doing well since surgery. Patient says the pain medication has seemed to have helped for a little bit. Patient says she does have crutches at home. Patient denies any numbness/tingling in the left foot. Patient says she has u rinated several times since surgery. Patient says she is hoping to go home later today. Patient denies any other changes. Patient denies chest pain, fever, shortness of breath, nausea, vomiting, change in vision, loss of bowel/bladder control. Objective - Vital Signs Vital signs: Vital Signs Temp 98.8 F 04/24/23 07:15 Pulse 77 04/24/23 07:15 Resp 18 04/24/23 07:15 BP 106/66 04/24/23 07:15 Pulse Ox 100 04/24/23 07:15 FiO2 Intake & Output 04/23/23 04/24/23 04/24/23 18:59 06:59 18:59 Intake Total 800 580 Output Total 10 Balance 790 580 Weight 69 kg Intake: IV 800 Intake, IV Titration 100 Amount ceFAZolin 2 gm In Sodium 100 Chloride 0.9% 50 ml @ 100 mls/hr IVPB Q8H [facility] Rx#: [id number] Oral 480 Output: Estimated Blood Loss 10 Other: # Voids 1 - Exam Left ankle: Baer dressing and Antonio bandages present splint over the left lower extremity. Digits in the left foot are warm to the touch. Cap refill under 3 seconds in digits of lower extremities. Patient does have limited range of motion in toes left foot. Patient is able to flex and extend left knee while lying in bed. Sensory exam to light touch throughout the left lower extremity from the hip to the knee is intact - Labs CBC & Chem 7: 04/23/23 17:54 Labs: Abnormal Lab Results - Last 24 Hours (Table) 04/23/23 04/23/23 04/24/23 Range/Units 13:08 20:44 05:47 POC Glucose (mg/dL) 123 H 212 H 137 H (70-110) mg/dL Assessment and Plan Assessment: 1. Displaced left bimalleolar ankle fracture Postoperative day #1 status post Open reduction and internal fixation left bimalleolar ankle fracture Plan: 1. Displaced left bimalleolar ankle fracture - surgery performed yesterday, W , 04/23/2023 - Open reduction and internal fixation left bimalleolar ankle fracture. Patient stable at bedside this morning and doing well. We will write a prescription for a knee scooter so patient can have when she goes home. Patient does already have crutches at home. Patient to remain nonweightbearing left lower extremity. Pain medication as needed. Continue Plavix daily. Discharge home later today. 2. Appreciate medical management 3. Pain management - [place] 5 mg/325 12 every 6 hours 4. DVT prophylaxis - Plavix 5. GI prophylaxis - senna 6. PT/OT - nonweightbearing left lower extremity. Use crutches 7. Encourage incentive spirometer use 8. Discharge planning - discharge home today Time with Patient: Less than 30
[2023-04-24] MEDS ORDERED: NON FORMULARY DRUG (Vitamin B Complex [Vitamin B Complex] 1 EACH Capsule) PO SCH (10:30)
[2023-04-24] MEDS ORDERED: metFORMIN 500 MG TAB PO SCH (10:30)
[2023-04-24] MEDS ORDERED: CHOLECALCIFEROL 25 MCG (1000 IU) TABLET PO SCH (10:30)
[2023-04-24] MEDS ORDERED: ATORVASTATIN 20 MG TAB PO SCH (10:30)
--- NOTE | 2023-04-24 12:18 | FL ---
Fluoroscopy INDICATION: Left ankle fracture FINDINGS: Fluoroscopy time: 20 seconds. Total dose area product (DAP) in uGy*m?, mGy*cm? (or similar): 0.2899 Images obtained: 5. IMPRESSIONS: 1. Documentation of fluoroscopy.
== END 2023-04-24 12:40 | disposition home or self-care (01) ==
LOC: OR 12:10 → 4SSUR 15:49 → OR 04-24 12:40
PROVIDERS: ATTEND Orthopaedic Surgery
DX: S82.842A Displaced bimalleolar fracture of left lower leg, initial encounter for closed fracture (principal); G89.18 Other acute postprocedural pain; X50.1XXA Overexertion from prolonged static or awkward postures, initial encounter; I10 Essential (primary) hypertension; E78.5 Hyperlipidemia, unspecified; E11.9 Type 2 diabetes mellitus without complications; Z90.79 Acquired absence of other genital organ(s); Z90.89 Acquired absence of other organs; Z79.02 Long term (current) use of antithrombotics/antiplatelets; Z79.899 Other long term (current) drug therapy
CPT/HCPCS: 97162; 64447; 64445; 85025; 73610; 27814; C1713; J2250; J1100; J0690 ×3; J2405; J3010

== ENCOUNTER → 2024-06-24 | Outpatient (CLI) | payer MEDICARE ==
--- NOTE | 2024-06-24 11:03 | CA ---
Exercise Nuclear Stress Test Report Name: Cornelia North Exam Date: 06/24/2024 09:26 Exam Location: [place] Stress Ht (in): 65 Wt (lb): 164 BSA: 1.82 Ordering Phys: Sae Chavez MD Referring Phys: SAE CHAVEZ,, Technologist: Vitaliy Bonilla Age: 74 Gender: F : 1950 Procedure CPT: Indications: I20.89 ICD-10 Codes: Patient History: Medications: METFORMIN, ATORVASTATIN, LIPITOR Meds past 24 hrs: Pretest Chest Pain: STRESS TEST Protocol Exercise Duration (min:sec): 07:[address] Depressions (mm): Angina Score: Nova Score: Resting HR (bpm): 64 Peak HR (bpm): 141 Resting BP (mmHg): 145 / 80 Peak BP (mmHg): 199 / 83 MPHR: 146 Target HR: 124 % MPHR: 97 METS: 8.5 Total Dose: Peak Dose: Atropine: Double Product: 59582 BP Response: Stress Termination: Reached target heart rate Stress Symptoms: No chest pain or symptoms Stress Summary: ECG ANALYSIS Resting ECG: Stress ECG: CONCLUSIONS Baseline EKG revealed a normal sinus rhythm without significant ST-T changes. Patient walked on a standard Presley protocol for 7 minutes 40 seconds and achieved a maximum heart rate of 146 bpm available 90% of predicted maximal. Resting blood pressure was 145/80 and peak blood pressure was 199/83. Patient did not have any angina. There were no EKG changes to indicate ischemia. There were isolated PVCs noted. This is a negative stress test with fair exercise capacity. The nuclear scan results will be reported with radiologist Dr. Nahomi Ward MD (Electronically Signed) Final Date: 24 June 2024 11:03
--- NOTE | 2024-06-24 13:03 | NM ---
EXAMINATION TYPE: NM stress cardiolite complete DATE OF EXAM: 06/24/2024 COMPARISON: NONE CLINICAL INDICATION: Female, 74 years old with history of I20.89; angina TECHNIQUE: After the intravenous administration of 8.39 mCi Tc 99m Sestamibi - Rest images obtained 50 minutes post injection. The patient exercised using a JAY protocol and 1 minute prior to peak exercise was injected with 9.35 mCi Tc 99m Sestamibi - Stress images obtained 30 minutes post injecti on. FINDINGS: Targeted heart rate (124 bpm) was achieved during performance of the study. 138 bpm achieved. Total e xercise time 7 minutes 4 seconds. Review of stress and rest SPECT images demonstrates perfusion defec t along the mid to apical anteroseptal septal wall. However, the defect is larger on rest suggesting prominent attenuation artifact. No other distinct perfusion abnormality. Gated analysis shows normal wall motion with an estimated left ventricular ejection fraction of 71 %. TID is calculated at 0.80 , within normal limits. IMPRESSION: Fixed anteroseptal wall defect though larger on rest favoring prominent attenuation artifact. No disc rete reversibility is seen. [facility], , 06/24/2024 1:01 PM
--- NOTE | 2024-06-28 10:13 | MM ---
Reason for Exam: Screening (asymptomatic). Last mammogram was performed 5 year(s) and 4 month(s) ago. Patient History: Menarche at age 15. First Full-Term at age 17. Postmenopausal. Risk Values: Makenna 5 year model risk: 1.4%. NCI Lifetime model risk: 3.1%. Prior Study Comparison: 09/22/2015 Bilateral Diagnostic Mammogram, [facility]. 04/21/2017 Bilateral Screening Mammogram, [facility]. 02/22/2019 Bilateral Screening Mammogram, [facility]. Tissue Density: The breasts are heterogeneously dense, which may obscure small masses. Findings: Analyzed By CAD. Right breast: There is no suspicious group of microcalcifications or new suspicious mass. Left breast: There is no suspicious group of microcalcifications or new suspicious mass. Overall Assessment: Negative, BI-RAD 1 Management: Screening Mammogram of both breasts in [address] [facility] will attempt to contact patient to return for supplemental views and ultrasound if indicated. Patient should continue monthly self-breast exams. A clinical breast exam by your physician is recommended on an annual basis. This exam should not preclude additional follow-up of suspicious palpable abnormalities. Note on Makenna scores and lifetime risk: 1. A Makenna score greater than 3% is considered moderate risk. If this is the case, consider specialist referral to assess eligibility for a risk reducing agent. 2. If overall lifetime risk for the development of breast cancer is 20% or higher, the patient may qualify for future screening with alternating mammogram and breast MRI. [facility], , 06/28/2024 10:10 AM. Electronically signed and approved by: Elvin Castellano DO
== END | disposition home or self-care (01) ==
LOC: RADMAMWWP 07:42
PROVIDERS: ATTEND Internal Medicine
CPT/HCPCS: 77063; 77067; 78452; 93017

== ENCOUNTER → 2024-06-29 | Outpatient (CLI) | payer MEDICARE ==
--- NOTE | 2024-06-29 16:35 | CA ---
Transthoracic Echo Report Name: Cornelia North Age: 74 Gender: F : 1950 Exam Date: 06/29/2024 15:01 Exam Location: [place] [facility] Ht (in): 65 Wt (lb): 164 Ordering Physician: Sae Thomas MD Attending/Referring Phys: Bell Valet Rachel Justice RDCS Procedure CPT: Indications: I20.80 Stable angina pectoris; I65.23 Cardiac Hx: Technical Quality: Good Contrast 1: Total Dose (mL): Contrast 2: Total Dose (mL): MEASUREMENTS (Male / Female) Normal Values 2D ECHO LV Diastolic Diameter PLAX 4.6 cm 4.2 - 5.9 / 3.9 - 5.3 cm LV Systolic Diameter PLAX 3.2 cm IVS Diastolic Thickness 0.7 cm 0.6 - 1.0 / 0.6 - 0.9 cm LVPW Diastolic Thickness 0.8 cm 0.6 - 1.0 / 0.6 - 0.9 cm LV Relative Wall Thickness 0.3 LVOT Diameter 2.1 cm LV Diastolic Volume MOD BP 76.5 cm??? 67 - 155 / 56 - 104 cm??? LV Systolic Volume MOD BP 23.7 cm??? 22 - 58 / 19 - 49 cm??? LV Ejection Fraction MOD BP 69.0 % >= 55 % LV Cardiac Index MOD BP 1812.2 cm???/min???m??? LV Diastolic Volume MOD 4C 76.0 cm??? LV Systolic Volume MOD 4C 26.3 cm??? LV Ejection Fraction MOD 4C 65.3 % LV Cardiac Index MOD 4C 1705.0 cm???/min???m??? LV Diastolic Length 4C 7.3 cm LV Systolic Length 4C 5.9 cm LV Diastolic Volume MOD 2C 75.8 cm??? LV Systolic Volume MOD 2C 20.5 cm??? LV Ejection Fraction MOD 2C 72.9 % LV Cardiac Index MOD 2C 1898.0 cm???/min???m??? LV Diastolic Length 2C 7.5 cm LV Systolic Length 2C 5.7 cm LA Volume 35.6 cm??? 18 - 58 / 22 - 52 cm??? LA Volume Index 19.1 cm???/m??? 16 - 28 cm???/m??? Ascending Aorta Diameter 3.2 cm DOPPLER AV Peak Velocity 119.8 cm/s AV Peak Gradient 5.7 mmHg AV Mean Velocity 75.0 cm/s AV Mean Gradient 2.7 mmHg AV Velocity Time Integral 22.8 cm LVOT Peak Velocity 106.7 cm/s LVOT Peak Gradient 4.6 mmHg LVOT Velocity Time Integral 20.2 cm LVOT Stroke Volume 69.2 cm??? LVOT Stroke Volume Index 38.1 ml/m??? LVOT Cardiac Index 2375.2 cm???/min???m??? AV Area Cont Eq vti 3.0 cm??? AV Area Cont Eq pk 3.1 cm??? MV Area PHT 2.4 cm??? Mitral E Point Velocity 41.8 cm/s Mitral A Point Velocity 76.1 cm/s Mitral E to A Ratio 0.5 MV Deceleration Time 321.3 ms TR Peak Velocity 243.4 cm/s TR Peak Gradient 23.7 mmHg Right Atrial Pressure 5.0 mmHg Pulmonary Artery Systolic Pressu 28.7 mmHg Right Ventricular Systolic Press 28.7 mmHg PV Peak Velocity 73.2 cm/s PV Peak Gradient 2.1 mmHg FINDINGS Left Ventricle Left ventricular ejection fraction is estimated at 60-65 %. Left ventricular cavity size normal. Left ventricular wall thickness normal. No obvious regional wall motion abnormalities. Right Ventricle Normal right ventricular size and function. Right ventricular systolic pressure within normal limits. Right Atrium Normal right atrial size. Left Atrium Normal left atrial size. Mitral Valve Structurally normal mitral valve. No mitral stenosis, regurgitation or prolapse. Aortic Valve Trileaflet aortic valve. No aortic valve stenosis or regurgitation. Tricuspid Valve Structurally normal tricuspid valve. No tricuspid stenosis. Mild tricuspid regurgitation. Pulmonic Valve Pulmonic valve not well visualized. No pulmonic stenosis. No pulmonic regurgitation. Pericardium No pericardial effusion. Aorta Normal size aortic root and proximal ascending aorta. CONCLUSIONS Normal LV function Previewed by: Dr. Ck Rodriguez MD (Electronically Signed) Final Date: 29 June 2024 16:35
--- NOTE | 2024-06-30 08:56 | US ---
EXAMINATION TYPE: US carotid duplex BILAT DATE OF EXAM: 06/29/2024 COMPARISON: NONE CLINICAL INDICATION: Female, 74 years old with history of I6523 CAROTID STENOSIS BILAT; ? Stroke like episode in 2016 TECHNIQUE: Grayscale, color Doppler and spectral Doppler evaluation of the bilateral carotid systems and vertebral arteries. Indirect Doppler criteria was utilized. FINDINGS: EXAM MEASUREMENTS: RIGHT: Peak Systolic Velocity (PSV) cm/sec ----- Right CCA: 79 ----- Right ICA: 87 ----- Right ECA: 63 ICA/CCA ratio: 1.1 RIGHT: End Diastole cm/sec ----- Right CCA: 23 ----- Right ICA: 35 ----- Right ECA: 0 LEFT: Peak Systolic Velocity (PSV) cm/sec ----- Left CCA: 71 ----- Left ICA: 97 ----- Left ECA: 62 ICA/CCA ratio: 1.4 LEFT: End Diastole cm/sec ----- Left CCA: 22 ----- Left ICA: 36 ----- Left ECA: 11 VERTEBRALS (direction of flow): Right Vertebral: Antegrade Left Vertebral: Antegrade Rhythm: Normal VISE HAND NOTES: No intimal thickening, plaque, or elevated velocities seen IMPRESSION: No ultrasound evidence for hemodynamically significant stenosis of the bilateral visualized carotid a rterial systems. Criteria for Assigning % of Stenosis / Diameter reduction (Estimation based on the indirect measurements of the internal carotid artery velocities (ICA PSV). 1. Normal (no stenosis)=ICA PSV < 125 cm/s: ratio < 2.0: ICA EDV<40 cm/s. 2. Less than 50% stenosis=ICA PSV < 125 cm/s: ratio < 2.0: ICA EDV<40 cm/s. 3. 50 to 69% stenosis=ICA PSV of 125 to 230 cm/s: ration 2.0 ? 4.0: ICA EDV 40-100 cm/s. 4. Greater than 70% stenosis to near occlusion= ICA PSV > 230 cm/s: ratio > 4.0: ICA EDV > 100 cm/s. 5. Near occlusion= ICA PSV velocities may be low or undetectable: variable ratio and ICA EDV. 6. Total occlusion=unable to detect flow. [facility], , 06/30/2024 8:54 AM
== END | disposition home or self-care (01) ==
LOC: RADECHMAIN 14:54
PROVIDERS: ATTEND Internal Medicine
CPT/HCPCS: 93306; 93880